=== PATIENT | female | born 1995 ===

== ENCOUNTER 2016-04-06 21:17 | Emergency (ER) | payer OTHER ==
[2016-04-06] MEDS ORDERED: IOPAMIDOL 370 (76%) 100 ML VIAL IV ONE (21:18)
[2016-04-06 22:10] LABS: SPECIFIC GRAVITY 1.025 (1.001-1.030); URINE BILIRUBIN NEGATIVE (NEGATIVE); URINE BLOOD 4+ (NEGATIVE); URINE GLUCOSE (UA) NEGATIVE (NEGATIVE); URINE LEUKOCYTE ESTERASE NEGATIVE (NEGATIVE); URINE NITRITE NEGATIVE (NEGATIVE); URINE PROTEIN NEGATIVE (NEGATIVE); URINE UROBILINOGEN NORMAL (0-1 mg/dl)
[2016-04-06 22:12] LABS: HCG,QUALITATIVE URINE NEGATIVE
[2016-04-06 22:14] LABS: URINE APPEARANCE CLEAR; URINE COLOR DARK YELLOW
[2016-04-06 22:22] LABS: URINE BACTERIA RARE; URINE RBC 0-5 /hpf; URINE WBC 0-1 /hpf
[2016-04-06] MEDS ORDERED: ONDANSETRON 4 MG/2ML 2 ML VIAL ONE (22:23)
[2016-04-06] MEDS ORDERED: MORPHINE SULFATE 4 MG/ML SYRINGE ONE ×2 (22:23→23:55)
[2016-04-06] MEDS ORDERED: SODIUM CHLORIDE 0.9% 1,000 ML ONE (22:23)
[2016-04-06 22:40] LABS: ABSOLUTE NEUTROPHIL COUNT 4.6 K/mm3 (1.8-7.7); BASO # 0.1 K/mm3 (0.0-0.2); BASO % 0.7 % (0.2-1.0); EOS # 0.3 (0.0-0.5); EOS % 3.9 % (0.9-2.9); HEMATOCRIT 41.1 % (37.0-47.0); IMM NEUT% 0.1 % (0-1); LYMPH # 2.8 (1.0-4.8); LYMPH % 32.7 % (15-45); MEAN CELL VOLUME 82.4 fl (81.0-99.0); MEAN CORPUSCULAR HEMOGLOBIN 26.1 pg (27.0-31.0); MEAN CORPUSCULAR HGB CONC 31.6 g/dl (33.0-37.0); MONO # 0.7 (0.0-0.8); MONO % 7.8 % (4-12); NEUT % 54.8 % (43-75); PLATELET COUNT 346 K/mm3 (130-400); RED CELL DISTRIBUTION WIDTH 12.8 % (11.5-14.5)
[2016-04-06 23:03] LABS: ALB/GLOB RATIO 1.3 (>1.0); ALBUMIN 4.1 gm/dL (3.5-5.7); CALCIUM 9.8 mg/dL (8.6-10.3); MAGNESIUM 1.9 mg/dL (1.9-2.7)
[2016-04-07] MEDS ORDERED: ACETAMINOPHEN 500 MG TABLET ONE (00:20)
[2016-04-07] MEDS ORDERED: KETOROLAC TROMETHAMINE 30 MG/ML 1 ML VIAL ONE (00:20)
[2016-04-07] MEDS ORDERED: OXYCODONE HCL 5 MG TABLET ONE (00:20)
--- NOTE | 2016-04-07 08:00 | CT ---
Exam: CT abdomen and pelvis with contrast COMPARISON: None INDICATION: Irregular periods, right lower quadrant abdominal pain. TECHNIQUE: CT examination of the abdomen and pelvis was obtained following the administration of 100 mL Isovue-370 intravenous contrast. FINDINGS: Moderate amount of stool seen throughout the colon. The appendix is within normal limits. There is no bowel obstruction, free air or free intraperitoneal fluid. The right kidney is ectopically located within the pelvis, normal anatomic variant, but is otherwise unremarkable. Left kidney unremarkable as well. Probable mild hepatic steatosis. Spleen is normal in size. Pancreas within normal limits. There is no adrenal mass. Gallbladder is unremarkable. Uterus is grossly unremarkable. There is no adnexal mass. Urinary bladder within normal limits. Lung bases are clear. No worrisome osseous abnormality is identified. IMPRESSION: No acute findings identified to explain right lower quadrant pain. Incidental finding of ectopic right kidney and probable hepatic steatosis. Preliminary report transmitted to the emergency department from [facility] at 2325 hours 04/06/2016.
--- NOTE | 2016-04-07 08:05 | US ---
Exam: Complete pelvic ultrasound COMPARISON: CT 04/06/2016 INDICATION: Right lower quadrant pain, concern for torsion. Findings: Transabdominal and transvaginal pelvic ultrasound was obtained. Uterus measures 8.1 x 3.0 x 5.5 cm and is homogeneous in echotexture. No myometrial mass is identified. Endometrium within normal limits measuring up to 4 mm in bilayer thickness on the transvaginal exam. Right ovary measures 3.4 x 2.0 x 2.9 cm and left ovary measures 3.2 x 1.4 x 1.7 cm. There is no cystic or solid ovarian mass. Blood flow is present within both ovaries. There is no significant free fluid in the cul-de-sac. IMPRESSION: Unremarkable pelvic ultrasound. Ovaries are normal. Preliminary report transmitted to the emergency department from [facility] at 0120 hours 04/07/2016.
== END 2016-04-07 02:03 | disposition home or self-care (01) ==
LOC: EDBD 21:17 → ED 21:17
DX: R10.9 Unspecified abdominal pain (principal); R53.1 Weakness
CPT/HCPCS: 83690; 81025; 85025; 80053; 83735; 81001; 74177; 76856; 76830; 96375 ×2; 96376; 99284 ×2; 96374; J2270 ×2; A9270 ×2; J1885; J2405; J7030; Q9967